=== PATIENT | male | born 1990 | race Hispanic/Latino ===

== ENCOUNTER → 2017-02-05 | Day surgery (SDC) | payer OTHER ==
[~2017-02-05] VITALS: Ht 172.7 cm; Wt 94.8 kg
[~2017-02-05] MED LIST: BACT800T5 PO; BACTRIM 160MG/800MG DS TAB PO SCH; BUPIVACAINE HCL 0.25% 30 ML VIAL As Ordered ONE; KETOROLAC 60 MG/2 ML VIAL (J1885) As Ordered ONE; LIDOCAINE 2% INJ 100 MG/5 ML SDV (FOR ANES.) As Ordered ONE; LR 1,000 ML IV SCH; LevoFLOXacin IV 500 MG in APPROPRIATE DILUENT 1 EA IV ONE; MIDAZOLAM INJ 2 MG/2 ML VIAL (J2250) As Ordered ONE; ONDANSETRON 4MG/2ML VIAL (J2405) As Ordered ONE; ONDANSETRON 4MG/2ML VIAL (J2405) IV PRN; PERCOCET 5MG/325MG TAB PO PRN; PERCOCET PO; PROPOFOL 200 MG/20 ML VIAL As Ordered ONE; PROPOFOL 500 MG/50 ML VIAL As Ordered ONE; dexameTHASONE 4 MG/ML 1ML VIAL (J1100) As Ordered ONE; fentaNYL 100 MCG/2 ML INJECTION (J3010) As Ordered ONE; fentaNYL 100 MCG/2 ML INJECTION (J3010) IV PRN; no medications
[2017-02-05 19:45] VITALS: BP 130/66
--- NOTE | 2017-02-07 09:22 | RO ---
DATE OF PROCEDURE: 02/05/2017 PREOPERATIVE DIAGNOSIS: Right epididymal cyst. POSTOPERATIVE DIAGNOSIS: Right epididymal cyst. SURGERY PERFORMED: Right epididymal cyst excision. SURGEON: Dr. Magdi lFetcher WIRELINE OPERATOR: Sadiq Mcgill, PGY-3, resident COMPLICATIONS: None. ESTIMATED BLOOD LOSS: N/A. ANESTHESIA: General. HISTORY OF PRESENT ILLNESS: 26-year-old male patient with right epididymal pain. He has an epididymal cyst about 5 cm in diameter. For this reason, he has consented for a right epididymal cyst excision. DESCRIPTION OF PROCEDURE: In a patient under general anesthesia in supine position, after prepping and draping the area of concern, which included the entire genitalia and abdomen, we started by doing a transverse incision about 5 cm in length in the right hemiscrotal sac. Through this incision, we opened the tunica vaginalis in a longitudinal fashion and inverted it with #4-0 chromic in a running fashion. We then visualized the appendix of Morgagni, which was extracted with electro Bovie cautery, and then we dissected epididymal cyst with cuticular scissors. Once the cyst was excised, we fulgurated the bleeding vessels and dropped the testicle in the right scrotal sac. Closed the scrotal sac in two layers with a running #3-0 Monocryl and skin in a running #3-0 chromic also. The patient tolerated well the procedure. Patient will go home with the following indications: Bactrim one tablet by mouth twice a day for 10 days, Percocet 5/325 mg one tablet by mouth every 6 hours as needed for pain. No heavy weightlifting for about 1 month, more than 20 pounds. No exercise for about [address] on narcotics. Followup at [facility] [place] in 2 weeks.
== END | disposition home or self-care (01) ==
LOC: M SDC 13:12
PROVIDERS: ATTEND Urology
DX: N50.3 Cyst of epididymis (principal); N50.811 Right testicular pain; K21.9 Gastro-esophageal reflux disease without esophagitis
CPT/HCPCS: 36415; 54840; 86850; 86900; 86901; 88302; 88305; J1100; J1885; J1956; J2250; J2405; J3010